=== PATIENT | male | born 1985 | race Caucasian/White ===

== ENCOUNTER 2022-03-08 07:38 | Emergency (ER) | payer OTHER ==
[~2022-03-08 07:38] MED LIST: KEPPRA500 MG PO; LAMICTAL100 MG PO; PEPCID AC20 MG PO; PREDNISONE 20MG20 MG PO; VIMPAT50 MG PO
[2022-03-08 08:08] LABS: BASOPHIL 0.5 % (0-2); EOSINOPHIL 3.8 % (0-5); HCT 45.3 % (42.0-52.0); HGB 15.5 g/dl (13.2-18.0); LYMPHOCYTE 30.1 % (15-48); MCH 30.1 pg (25.0-31.0); MCHC 34.2 g/dL (32.0-36.0); MONOCYTE 7.1 % (0-12); NRBC 0; PLT 216 K/uL (150-400); RBC 5.15 M/uL (4.70-6.00); RDW 12.4 % (11.5-14.0); WBC 6.3 K/uL (4.0-10.5)
[2022-03-08 08:28] LABS: BILIRUBIN - TOTAL 0.3 mg/dL (0.2-1.0); BUN/CREAT RATIO (CALC) 13.4 RATIO; CREATININE 0.97 mg/dL (0.67-1.17); GLOBULIN (CALCULATION) 3.2 g/dL; POTASSIUM 3.7 mmol/L (3.5-5.1); TOTAL PROTEIN 7.2 g/dL (6.4-8.2)
== END 2022-03-08 10:34 | disposition home or self-care (01) ==
LOC: FER 07:38
PROVIDERS: Internal Medicine
DX: G40.909 Epilepsy, unspecified, not intractable, without status epilepticus (principal); S00.83XA Contusion of other part of head, initial encounter
CPT/HCPCS: 36415; 70450; 80053; 83605; 85025; J1953; J7030